=== PATIENT | female | born 1980 ===

== ENCOUNTER 2018-11-05 19:01 | Observation (INO) | payer OTHER ==
--- NOTE | 2018-11-05 20:20 | ED PDOC ---
Arrival/HPI - General Historian: Patient - History of Present Illness Narrative History of Present Illness (Text): 11/05/18 19:52 38-year-old female with a history of cholecystectomy presents today with right- sided back pain radiating to the upper abdomen that started this morning. No medications have been taken for pain at home. patient denies nausea vomiting diarrhea or constipation. No chest pain or shortness of breath. Patient denies cough or URI symptoms. Patient states she had an achy pain that started in the upper back this morning and throughout the days gradually worsened and the pain is now wrapping around the right side back to the upper abdomen. Patient denies dysuria urinary frequency or urgency. Denies fevers or chills. No other complaints <Isis Burkett - Last Filed: 11/06/18 00:50> <Daniel Le - Last Filed: 11/06/18 01:20> - General Chief Complaint: Abdominal Pain Time Seen by Provider: 11/05/18 19:09 Past Medical History - Provider Review Nursing Documentation Reviewed: Yes - Travel History Have you recently traveled outside [place] w/in the past 3 mons?: No - Tetanus Immunization Tetanus Immunization: Unknown - Reproductive Currently : No - Psychiatric Hx Substance Use: No - Surgical History Hx Cholecystectomy: Yes <Isis Burkett - Last Filed: 11/06/18 00:50> Family/Social History - Physician Review Nursing Documentation Reviewed: Yes Family/Social History: Unknown Family HX Smoking Status: Former Smoker Hx Alcohol Use: Yes Frequency of alcohol use: Socially Hx Substance Use: No <Isis Burkett - Last Filed: 11/06/18 00:50> Allergies/Home Meds <Isis Burkett - Last Filed: 11/06/18 00:50> <Daniel Le - Last Filed: 11/06/18 01:20> Allergies/Adverse Reactions: Allergies No Known Allergies Allergy (Verified 11/05/18 19:19) Home Medications: Home Meds Medication Instructions Recorded Confirmed No Known Home Med 11/05/18 11/05/18 Review of Systems - Review of Systems Constitutional: absent: Fatigue, Fevers Respiratory: absent: SOB, Cough Cardiovascular: absent: Chest Pain, Palpitations Gastrointestinal: Abdominal Pain. absent: Constipation, Diarrhea, Nausea, Vomiting Genitourinary Female: absent: Dysuria, Frequency, Hematuria Musculoskeletal: Back Pain. absent: Arthralgias, Neck Pain Skin: absent: Rash, Pruritis Neurological: absent: Headache, Dizziness Psychiatric: absent: Anxiety, Depression <Isis Burkett - Last Filed: 11/06/18 00:50> Physical Exam Vital Signs Reviewed: Yes Vital Signs Temp Pulse Resp BP Pulse Ox 11/05/18 19:12 97.9 F 78 18 112/72 98 Temperature: Afebrile Blood Pressure: Normal Pulse: Regular Respiratory Rate: Normal Appearance: Positive for: Well-Appearing, Non-Toxic, Comfortable Pain Distress: None Mental Status: Positive for: Alert and Oriented X 3 - Systems Exam Head: Present: Atraumatic Mouth: Present: Moist Mucous Membranes Neck: Present: Normal Range of Motion Respiratory/Chest: Present: Clear to Auscultation, Good Air Exchange. No: Respiratory Distress, Accessory Muscle Use Cardiovascular: Present: Regular Rate and Rhythm, Normal S1, S2. No: Murmurs Abdomen: Present: Tenderness (+ ruq tenderness,). No: Distention, Peritoneal Signs, Rebound, Guarding Back: Present: Normal Inspection, Other (no rash). No: Midline Tenderness, Paraspinal Tenderness Upper Extremity: Present: Normal ROM Lower Extremity: Present: Normal ROM Neurological: Present: GCS=15, Speech Normal Skin: Present: Warm, Dry, Normal Color. No: Rashes Psychiatric: Present: Alert, Oriented x 3 <Isis Burkett - Last Filed: 11/06/18 00:50> Vital Signs Temp Pulse Resp BP Pulse Ox 11/05/18 19:12 97.9 F 78 18 112/72 98 <Daniel Le - Last Filed: 11/06/18 01:20> Medical Decision Making ED Course and Treatment: 11/05/18 20:53 Patient is nontoxic well appearing with stable vital signs presenting with [severe] abdominal pain CBC wnl CMP wnl Lipase wnl Urinalysis wnl cxr; wnl CAT scan: FINDINGS: LUNG BASES: The lung bases appear clear. No pleural effusions are seen. LIVER: Unremarkable. GALLBLADDER AND BILE DUCTS: Status post cholecystectomy. No radioopaque gallstones are seen. No biliary ductal dilatation is evident. PANCREAS: Unremarkable. SPLEEN: There is mild splenomegaly. The spleen measured approximately 14.0 cm from superior to inferior pole. ADRENAL GLANDS: Unremarkable. KIDNEYS, URETERS, AND BLADDER: Incidental note is made of a 7.6 mm cyst and a 1.3 cm cyst in the lateral mid and inferolateral lower left renal pole respectively. Otherwise, the kidneys appear within normal limits. There is no hydronephrosis or hydroureter. No uri nary calculi are seen. The urinary bladder is normal in size and configuration. STOMACH AND BOWEL: Some mucosal wall thickening is seen within the lower esophagus at the esophagogastric junction suspicious for some GERD. Unremarkable appearance of the stomach. No evidence of bowel obstruction. Some mucosal wall thickening is noted throughout the small intestine suggesting enteritis. Additionally, there is some mucosal wall thickening throughout the course of the lcolon; most pronounced in the descending and sigmoid regions, suspicious for diffuse colitis. Infectious or inflammatory etiologies are thought likely. APPENDIX: No evidence of acute appendicitis on CT examination. PERITONEUM: No free fluid. No free air. LYMPH NODES: No lymphadenopathy is evident. REPRODUCTIVE: There is a possible Essure insert at the origin of the left fallopian tube. Additionally, there is apparent surgical clip or Essure insert migrated into abnormal position residing within the posterior cul-de-sac. A 2.0 x 2.4 x 2.1 cm left ovarian cyst is noted. Consideration could be given to correlation with TV pelvic ultrasound for further characterization. VASCULATURE: No evidence of abdominal aortic aneurysm. BONES: No aggressive appearing osseous lesion. No acute osseous pathology evident. IMPRESSION: 1. Diffuse enterocolitis as described above. Findings most pronounced in the descending and sigmoid colonic regions. 2. Evidence of GERD. 3. Status post cholecystectomy. 4. Mild splenomegaly. Measurement is given above. 5. Essure insert in the origin of the left fallopian tube. Possible Essure insert migrated into the posterior cul-de-sac. 6. 2.0 x 2.4 x 2.1 cm left ovarian cyst. Electronically signed on Nov 05, 2018 9:49:11 PM EST by: Eugene Salter M.D., CIPRIANO Certified By ABR & CBC[facility] Fellowship Trained MRI and CT Specialist US: Findings: The uterus is normal in size measuring 8.9x4.4x5.4 cm. Anteverted uterus. Endometrium is normal in thickness measuring 5.4 mm. The cervix is unremarkable measuring 3.5 cm in its length. No free fluid is identified in the pelvic cul-de-sac. Unremarkable right ovary measuring 2.4x1.6x2.6 cm. The left ovary measures 3x2x3 cm with a 2.3 cm cyst. Unable to visualize the intrauterine device. Impression: Inability to visualize the intrauterine device. Otherwise, unremarkable exam. Electronically signed on Nov 06, 2018 12:19:24 AM EST by: Ajay Hayes M.D., Certified by ABR, MSK, Neuroradiology Patient reassessment: pt feeling better after toradol. Discussed all results with patient in depth. ct shows enterocolitis; pt is without any n/v/d/c. no fever/chills. no wbcs. will not start abx. Pt states she never had a Essure insert placed. CT ? of essure insert with malposition vs surgical clip. my concern is if this is a essure insert that is malpositioned it may need to be removed due to risk of intraabdominal adhesions. Although on US there is no visualization of the left sided Essure insert or any malpositioned insert. dr. le discussed the case with dr. Neves; accepts observational status for further evaluations. impression; abdominal pain, abnormal ct, possible FB pelvis, enterocolitis admit observational status to med/surg for further evaluation - RAD Interpretation Radiology Orders: 11/05/18 19:31 CHEST PORTABLE [RAD] Stat <Isis Burkett T - Last Filed: 11/06/18 00:50> - Lab Interpretations Lab Results: Total Bilirubin 0.3 mg/dL (0.2-1.3) 11/05/18 20:00 AST 27 U/L (14-36) 11/05/18 20:00 ALT 31 U/L (7-56) 11/05/18 20:00 Alkaline Phosphatase 79 U/L (38-126) 11/05/18 20:00 Total Protein 8.0 g/dL (5.8-8.3) 11/05/18 20:00 Albumin 4.1 g/dL (3.0-4.8) 11/05/18 20:00 Globulin 3.9 gm/dL 11/05/18 20:00 Albumin/Globulin Ratio 1.1 (1.1-1.8) 11/05/18 20:00 Lipase 91 U/L (23-300) 11/05/18 20:00 Urine Color Yellow (YELLOW) 11/05/18 20:00 Urine Appearance Clear (CLEAR) 11/05/18 20:00 Urine pH 6.0 (4.7-8.0) 11/05/18 20:00 Ur Specific [place] 1.020 (1.005-1.035) 11/05/18 20:00 Urine Protein Negative mg/dL (<30 mg/dL) 11/05/18 20:00 Urine Glucose (UA) Negative mg/dL (NEGATIVE) 11/05/18 20:00 Urine Ketones Negative mg/dL (NEGATIVE) 11/05/18 20:00 Urine Blood Negative (NEGATIVE) 11/05/18 20:00 Urine Nitrate Negative (NEGATIVE) 11/05/18 20:00 Urine Bilirubin Negative (NEGATIVE) 11/05/18 20:00 Urine Urobilinogen 0.2 E.U./dL (<1 E.U./dL) 11/05/18 20:00 Ur Leukocyte Esterase Negative Mya/uL (NEGATIVE) 11/05/18 20:00 - RAD Interpretation Radiology Orders: 11/05/18 19:31 CHEST PORTABLE [RAD] Stat 11/05/18 20:38 ABD & PELVIS IV CONTRAST ONLY [CT] Stat - Medication Orders Current Medication Orders: Discontinued Medications Sodium Chloride (Sodium Chloride 0.9%) 1,000 mls @ 999 mls/hr IV .Q1H1M STA Stop: 11/05/18 21:38 Last Admin: 11/05/18 21:15 Dose: 999 mls/hr eMAR Start Stop Document 11/05/18 21:15 OCS (Rec: 11/05/18 21:15 OCS [facility]-ER-21) Intravenous Solution Start Date 11/05/18 Start Time 21:15 End Date 11/05/18 End time 22:16 Total Infusion Time 61 Ketorolac Tromethamine (Toradol) 30 mg IVP STAT STA Stop: 11/05/18 20:39 Last Admin: 11/05/18 21:15 Dose: Not Given Non-Admin Reason: Patient Refused <Daniel Le - Last Filed: 11/06/18 01:20> - PA / DENTAL TREATMENT COORDINATOR / Resident Statement DIONTE has reviewed & agrees with the documentation as recorded. DIONTE has examined the patient and agrees with the treatment plan. <Daniel Le - Last Filed: 11/06/18 01:20> Disposition/Present on Arrival - Present on Arrival Any Indicators Present on Arrival: No History of DVT/PE: No History of Uncontrolled Diabetes: No Urinary Catheter: No History of Decub. Ulcer: No History Surgical Site Infection Following: None - Disposition Have Diagnosis and Disposition been Completed?: Yes Disposition Time: 20:56 Patient Plan: Observation <Isis Burkett - Last Filed: 11/06/18 00:50> <Daniel Le - Last Filed: 11/06/18 01:20> - Disposition Diagnosis: Abdominal pain, Abnormal CT scan, pelvis, Enterocolitis Disposition: HOSPITALIZED Patient Problems: Current Active Problems Problem Status Onset Abdominal pain Acute Abnormal CT scan, pelvis Acute Enterocolitis Acute Condition: FAIR
[2018-11-05 20:21] LABS: BASO # 0.02 K/mm3 (0.0-2.0); BASO % 0.2 % (0.0-3.0); EOS # 0.1 (0.0-0.7); EOS % 1.4 % (1.5-5.0); HEMOGLOBIN 12.8 g/dL (12.0-16.0); LYMPH # 2.7 (1.2-3.4); LYMPH % 29.1 % (22.0-35.0); MEAN CELL VOLUME 83.1 fl (80.0-105.0); MEAN CORPUSCULAR HEMOGLOBIN 28.9 pg (25.0-35.0); MEAN CORPUSCULAR HGB CONC 34.8 g/dl (31.0-37.0); MEAN PLATELET VOLUME 9.5 fl (7.0-11.0); MONO # 0.7 (0.1-0.6); MONO % 7.6 % (1.0-6.0); RBC 4.43 10^6/uL (3.5-6.1); RED CELL DISTRIBUTION WIDTH 13.3 % (11.5-14.5); WHITE BLOOD COUNT 9.4 10^3/uL (4.5-11.0)
[2018-11-05 20:22] LABS: URINE BILIRUBIN NEGATIVE (NEGATIVE); URINE BLOOD NEGATIVE (NEGATIVE); URINE GLUCOSE (UA) NEGATIVE (NEGATIVE); URINE LEUKOCYTE ESTERASE NEGATIVE Leu/uL (NEGATIVE); URINE PROTEIN NEGATIVE mg/dL (<30 mg/dL); URINE UROBILINOGEN 0.2 E.U./dL (<1 E.U./dL)
[2018-11-05 20:23] LABS: URINE APPEARANCE CLEAR (CLEAR); URINE COLOR YELLOW (YELLOW)
[2018-11-05 20:27] LABS: ALB/GLOB RATIO 1.1 (1.1-1.8); ALBUMIN 4.1 g/dL (3.0-4.8); ALT/SGPT 31 U/L (7-56); AST/SGOT 27 U/L (14-36); BLOOD UREA NITROGEN 11 mg/dL (7-21); CALCIUM 9.3 mg/dL (8.4-10.5); GFR NON-AFRICAN AMERICAN > 60; LIPASE 91 U/L (23-300)
[2018-11-05] MEDS ORDERED: Sodium Chloride 0.9% 1,000 ML IV STA (20:38)
[2018-11-05] MEDS ORDERED: Iohexol 350 MG/100 ML VIAL ONE (20:51)
--- NOTE | 2018-11-06 01:38 | CP.PCM.HP ---
History of Present Illness - History of Present Illness History of Present Illness: Medicine History and Physical for Hospitalist Service, Dr. Jonathon Dupont, DO PGY-1 This is a 38 y o female with no remarkable PMhx who presents to the ED today c/o R-sided back pain radiating in front to the RUQ that started in the morning. States that when she was lifting her R shoulder to place her hair into a ponytail, she felt R sided shoulder pain that resolved about an hr later. Then states that the R-sided back pain presented with assoc. abd pain and that it was constant. Denies having pain like this in the past. States she has been able to tolerate PO diet throughout the day. Did not take any OTC pain meds at home for symptoms. Decided to come straight to the ED because her abd pain was not imp roving. Described the pain at the time being achy and uncomfortable. Denies having gas pain, constipation, or episodes of diarrhea. Denies nausea or vomiting. Denies chest pain, sob, urinary complaints, low back pain or other symptoms. States her symptoms are largely improved currently 2/2 treatment with Toradol in the ED. PMhx: none PSurgHx: Cholecystectomy in 1998 without complications as per pt POBhx: s/p 3 full-term NSVDs without complications PGynHx: denies hx ovarian cysts or fibroids; LMP Oct 2018, states periods are regular, no hx abnormal vaginal bleeding Allergies: NKDA Meds: none Fam hx: Dad has throat cancer currently in remission, Mom has hx of multiple blood clots/PEs Soc hx: smoked 1 ppd x 20 y (quit 1 month ago); social EtOH use; denies illicit drug use PMD: Dr. Yani Oh Present on Admission - Present on Admission Any Indicators Present on Admission: No History of DVT/PE: No History of Uncontrolled Diabetes: No Urinary Catheter: No Decubitus Ulcer Present: No Review of Systems - Constitutional Constitutional: absent: Anorexia, Chills ( ), Fever - Cardiovascular Cardiovascular: absent: Chest Pain, Dyspnea on Exertion - Respiratory Respiratory: absent: Cough, Dyspnea, Wheezing - Gastrointestinal Gastrointestinal: Abdominal Pain. absent: Bloating, Change in Stool Character, Constipation, Diarrhea, Nausea, Vomiting Past Patient History - Tetanus Immunizations Tetanus Immunization: Unknown - Past Social History Smoking Status: Former Smoker - PSYCHIATRIC Hx Substance Use: No - SURGICAL HISTORY Hx Cholecystectomy: Yes Meds Allergies/Adverse Reactions: Allergies Allergy/AdvReac Type Severity Reaction Status Date / Time No Known Allergies Allergy Verified 11/05/18 19:19 Physical Exam - Constitutional Appears: Non-toxic, No Acute Distress - Head Exam Head Exam: ATRAUMATIC, NORMOCEPHALIC - Eye Exam Eye Exam: EOMI, Normal appearance, PERRL - ENT Exam ENT Exam: Mucous Membranes Moist - Neck Exam Neck exam: Positive for: Full Rom, Normal Inspection. Negative for: Lymphadenopathy, Tenderness - Respiratory Exam Respiratory Exam: Clear to Auscultation Bilateral, NORMAL BREATHING PATTERN. absent: Rales, Rhonchi, Wheezes - Cardiovascular Exam Cardiovascular Exam: REGULAR RHYTHM, +S1, +S2. absent: Gallop, Rubs, Systolic Murmur - GI/Abdominal Exam GI & Abdominal Exam: Normal Bowel Sounds, Soft. absent: Distended, Guarding, Organomegaly, Rigid, Tenderness Additional comments: Neg Sher's sign, neg Rovsing's sign - Extremities Exam Extremities exam: Positive for: full ROM, normal capillary refill, normal inspection, pedal pulses present. Negative for: calf tenderness, pedal edema - Neurological Exam Neurological exam: Alert, CN II-XII Intact, Normal Gait, Oriented x3, Reflexes Normal - Psychiatric Exam Psychiatric exam: Normal Affect, Normal Mood - Skin Skin Exam: Dry, Intact, Normal Color, Warm Results - Vital Signs Recent Vital Signs: Last Vital Signs Temp 97.9 F 11/06/18 00:04 Pulse 84 11/06/18 00:04 Resp 19 11/06/18 00:04 BP 122/64 11/06/18 00:04 Pulse Ox 98 11/06/18 00:04 - Labs Result Diagrams: 11/05/18 20:00 11/05/18 20:00 Labs: Laboratory Results - last 24 hr 11/05/18 11/05/18 11/05/18 20:00 20:00 20:00 WBC 9.4 RBC 4.43 Hgb 12.8 Hct 36.8 MCV 83.1 MCH 28.9 MCHC 34.8 RDW 13.3 Plt Count 264 MPV 9.5 Neut % (Auto) 61.7 Lymph % (Auto) 29.1 [place] % (Auto) 7.6 H Eos % (Auto) 1.4 L Baso % (Auto) 0.2 Lymph # (Auto) 2.7 [place] # (Auto) 0.7 H Eos # (Auto) 0.1 Baso # (Auto) 0.02 Absolute Neuts (auto) 5.78 Sodium 137 Potassium 4.4 Chloride 103 Carbon Dioxide 29 Anion Gap 10 BUN 11 Creatinine 0.5 L Est GFR ( Amer) > 60 Est GFR (Non-Af Amer) > 60 Random Glucose 100 Calcium 9.3 Total Bilirubin 0.3 AST 27 ALT 31 Alkaline Phosphatase 79 Total Protein 8.0 Albumin 4.1 Globulin 3.9 Albumin/Globulin Ratio 1.1 Lipase 91 Urine Color Yellow Urine Appearance Clear Urine pH 6.0 Ur Specific [place] 1.020 Urine Protein Negative Urine Glucose (UA) Negative Urine Ketones Negative Urine Blood Negative Urine Nitrate Negative Urine Bilirubin Negative Urine Urobilinogen 0.2 Ur Leukocyte Esterase Negative Assessment & Plan - Assessment and Plan (Free Text) Assessment: This is a 38 y o female with no remarkable PMhx who presents to the ED today c/o R-sided back pain radiating in front to the RUQ that started in the morning. Found on CT to have possible foreign body migration, diffuse enterocolitis. Plan: RUQ abd pain -Etiology unclear, possibly 2/2 MSK vs. migration of surgical clip from prior cholecystectomy -Admit to med/surg -Pain improved s/p Toradol in ED, will cont to monitor symptoms -Tylenol q6h prn for pain -Regular diet -CXR on admission: no active disease -CT abd/pelvis: diffuse enterocolitis most prominent in descending + sigmoid colon regions. GERD. S/p cholecystectomy, Mild splenomegaly. Essure insert in origin of L fallopian tube. Possible Essure insert migrated into posterior cul-de-sac. 2.0 x 2.4 x 2.1 cm L ovarian cyst. -Pt denies ever having Essure procedure done in past. [facility]. Awaiting callback. -Transvag U/s: inability to visualize intrauterine device. Otherwise unremarkable exam. -No leukocytosis on admission -U/a negative -Afebrile, vitals stable GI ppx: Protonix DVT ppx: SCDs Pt seen, examined with, and plan discussed with Dr. Jonathon Neves, attending physician. Walker Dupont DO PGY-1, [employer]elling Machine Operator Pager #[phone]
[2018-11-06 03:25] VITALS: BMI 35.9
[2018-11-06 07:25] LABS: BASO # 0.01 K/mm3 (0.0-2.0); BASO % 0.1 % (0.0-3.0); EOS # 0.2 (0.0-0.7); EOS % 2.9 % (1.5-5.0); HEMOGLOBIN 12.1 g/dL (12.0-16.0); LYMPH # 2.1 (1.2-3.4); LYMPH % 29.6 % (22.0-35.0); MEAN CELL VOLUME 82.7 fl (80.0-105.0); MEAN CORPUSCULAR HEMOGLOBIN 28.3 pg (25.0-35.0); MEAN CORPUSCULAR HGB CONC 34.2 g/dl (31.0-37.0); MEAN PLATELET VOLUME 9.3 fl (7.0-11.0); MONO # 0.8 (0.1-0.6); RBC 4.28 10^6/uL (3.5-6.1); RED CELL DISTRIBUTION WIDTH 13.5 % (11.5-14.5)
--- NOTE | 2018-11-06 08:52 | CT ---
Date of service: 11/05/2018 PROCEDURE: CT Abdomen and Pelvis with contrast HISTORY: RIGHT SIDED BACK PAIN RADIATING TO RUQ COMPARISON: None. TECHNIQUE: Contrast dose: Radiation dose: Total exam DLP = 983.16 mGy-cm. This CT exam was performed using one or more of the following dose reduction techniques: Automated exposure control, adjustment of the mA and/or kV according to patient size, and/or use of iterative reconstruction technique. FINDINGS: LOWER THORAX: Unremarkable. LIVER: Unremarkable. No gross lesion or ductal dilatation. GALLBLADDER AND BILE DUCTS: Cholecystectomy. PANCREAS: Unremarkable. No gross lesion or ductal dilatation. SPLEEN: Unremarkable. ADRENALS: Unremarkable. No mass. KIDNEYS AND URETERS: 12 millimeter left lower pole renal cyst. No hydronephrosis. No solid mass. VASCULATURE: Unremarkable. No aortic aneurysm. No aortic atherosclerotic calcification or mural plaque present. BOWEL: Unremarkable. No obstruction. No gross mural thickening. APPENDIX: Normal appendix. PERITONEUM: Unremarkable. No free fluid. No free air. LYMPH NODES: Unremarkable. No enlarged lymph nodes. BLADDER: Unremarkable. REPRODUCTIVE: 2 centimeter left ovarian cyst. BONES: No acute fracture. OTHER FINDINGS: None. IMPRESSION: No acute pathology.
--- NOTE | 2018-11-06 08:57 | RAD ---
Date of service: 11/05/2018 HISTORY: Right sided upper abdominal pain COMPARISON: No prior. FINDINGS: LUNGS: Poor inspiration with low lung volumes, crowded bronchovascular markings and mild bibasilar atelectasis. PLEURA: No significant pleural effusion identified, no pneumothorax apparent. CARDIOVASCULAR: No aortic atherosclerotic calcification present. Normal cardiac size. No pulmonary vascular congestion. OSSEOUS STRUCTURES: No significant abnormalities. VISUALIZED UPPER ABDOMEN: Normal. OTHER FINDINGS: None. IMPRESSION: Poor inspiration with low lung volumes, crowded bronchovascular markings and mild bibasilar atelectasis.
[2018-11-06 09:05] LABS: ALB/GLOB RATIO 0.9 (1.1-1.8); ALBUMIN 3.4 g/dL (3.0-4.8); ALT/SGPT 28 U/L (7-56); AST/SGOT 25 U/L (14-36); BLOOD UREA NITROGEN 12 mg/dL (7-21); CALCIUM 8.6 mg/dL (8.4-10.5); GFR NON-AFRICAN AMERICAN > 60
[2018-11-06 09:22] VITALS: BP 111/54; PULSE 70; RESP 18; TEMP 98.6; O2SAT 97
--- NOTE | 2018-11-06 10:03 | US ---
Date of service: 11/05/2018 HISTORY: essure insert on ct? no hx of any essure procedure COMPARISON: None available. TECHNIQUE: Transabdominal/transvaginal sonographic evaluation of the pelvis performed. FINDINGS: UTERUS: Measures 0.9 x 4.9 x 5.4 cm. Normal in size and appearance. No fibroid or other mass lesion seen. 3.0 x 2.0 x 3.0 Unable to visualize Essure; please refer to prior CT scan the abdomen and pelvis. ENDOMETRIUM: Measures 5.4 mm in diameter. Unremarkable. CERVIX: No cervical abnormality. Cervix measures approximately 3.5 cm RIGHT OVARY: Measures 2.4 x 1.6 x 2.6 cm. No solid mass. Normal flow. LEFT OVARY: Measures cm. No solid mass. Normal flow. FREE FLUID: No significant free fluid noted. OTHER FINDINGS: None. IMPRESSION: Unable to visualize Essure; please refer to prior CT scan abdomen pelvis
--- NOTE | 2018-11-06 11:30 | CARD ---
APPROVED REPORT Date of service: 11/05/2018 EKG Measurement Heart [id number] <Conclusion> Sinus rhythm with occasional premature ventricular complexes Possible Left atrial enlargement
--- NOTE | 2018-11-06 15:00 | CP.PCM.DIS ---
Provider - Provider Date of Admission: 11/06/18 00:49 Attending physician: Amara Valentine DO Primary care physician: Yani Oh MD Time Spent in preparation of Discharge (in minutes): 45 Diagnosis - Discharge Diagnosis (1) Abdominal pain Status: Resolved Hospital Course - Lab Results Lab Results: Most Recent Lab Values WBC 7.0 10^3/uL (4.5-11.0) D 11/06/18 07:10 RBC 4.28 10^6/uL (3.5-6.1) 11/06/18 07:10 Hgb 12.1 g/dL (12.0-16.0) 11/06/18 07:10 Hct 35.4 % (36.0-48.0) L 11/06/18 07:10 MCV 82.7 fl (80.0-105.0) 11/06/18 07:10 MCH 28.3 pg (25.0-35.0) 11/06/18 07:10 MCHC 34.2 g/dl (31.0-37.0) 11/06/18 07:10 RDW 13.5 % (11.5-14.5) 11/06/18 07:10 Plt Count 225 10^3/uL (120.0-450.0) 11/06/18 07:10 MPV 9.3 fl (7.0-11.0) 11/06/18 07:10 Neut % (Auto) 56.4 % (50.0-68.0) 11/06/18 07:10 Lymph % (Auto) 29.6 % (22.0-35.0) 11/06/18 07:10 [place] % (Auto) 11.0 % (1.0-6.0) H 11/06/18 07:10 Eos % (Auto) 2.9 % (1.5-5.0) 11/06/18 07:10 Baso % (Auto) 0.1 % (0.0-3.0) 11/06/18 07:10 Lymph # (Auto) 2.1 (1.2-3.4) 11/06/18 07:10 [place] # (Auto) 0.8 (0.1-0.6) H 11/06/18 07:10 Eos # (Auto) 0.2 (0.0-0.7) 11/06/18 07:10 Baso # (Auto) 0.01 K/mm3 (0.0-2.0) 11/06/18 07:10 Absolute Neuts (auto) 3.94 (1.4-6.5) 11/06/18 07:10 Sodium 137 mmol/L (132-148) 11/06/18 07:10 Potassium 3.7 mmol/L (3.6-5.0) 11/06/18 07:10 Chloride 108 mmol/L (98-107) H 11/06/18 07:10 Carbon Dioxide 25 mmol/L (21-33) 11/06/18 07:10 Anion Gap 8 (10-20) L 11/06/18 07:10 BUN 12 mg/dL (7-21) 11/06/18 07:10 Creatinine 0.4 mg/dl (0.7-1.2) L 11/06/18 07:10 Est GFR ( Amer) > 60 11/06/18 07:10 Est GFR (Non-Af Amer) > 60 11/06/18 07:10 Random Glucose 103 mg/dL (70-110) 11/06/18 07:10 Calcium 8.6 mg/dL (8.4-10.5) 11/06/18 07:10 Total Bilirubin 0.8 mg/dL (0.2-1.3) 11/06/18 07:10 AST 25 U/L (14-36) 11/06/18 07:10 ALT 28 U/L (7-56) 11/06/18 07:10 Alkaline Phosphatase 72 U/L (38-126) 11/06/18 07:10 Total Protein 7.0 g/dL (5.8-8.3) 11/06/18 07:10 Albumin 3.4 g/dL (3.0-4.8) 11/06/18 07:10 Globulin 3.6 gm/dL 11/06/18 07:10 Albumin/Globulin Ratio 0.9 (1.1-1.8) L 11/06/18 07:10 Lipase 91 U/L (23-300) 11/05/18 20:00 Urine Color Yellow (YELLOW) 11/05/18 20:00 Urine Appearance Clear (CLEAR) 11/05/18 20:00 Urine pH 6.0 (4.7-8.0) 11/05/18 20:00 Ur Specific [place] 1.020 (1.005-1.035) 11/05/18 20:00 Urine Protein Negative mg/dL (<30 mg/dL) 11/05/18 20:00 Urine Glucose (UA) Negative mg/dL (NEGATIVE) 11/05/18 20:00 Urine Ketones Negative mg/dL (NEGATIVE) 11/05/18 20:00 Urine Blood Negative (NEGATIVE) 11/05/18 20:00 Urine Nitrate Negative (NEGATIVE) 11/05/18 20:00 Urine Bilirubin Negative (NEGATIVE) 11/05/18 20:00 Urine Urobilinogen 0.2 E.U./dL (<1 E.U./dL) 11/05/18 20:00 Ur Leukocyte Esterase Negative Mya/uL (NEGATIVE) 11/05/18 20:00 - Hospital Course Hospital Course: Upon admission: 38 y o female with no remarkable PMhx who presents to the ED today c/o R-sided back pain radiating in front to the RUQ that started in the morning. States that when she was lifting her R shoulder to place her hair into a ponytail, she felt R sided shoulder pain that resolved about an hr later. Then states that the R- sided back pain presented with assoc. abd pain and that it was constant. Denies having pain like this in the past. States she has been able to tolerate PO diet throughout the day. Did not take any OTC pain meds at home for symptoms. Decided to come straight to the ED because her abd pain was not improving. Described the pain at the time being achy and uncomfortable Upon discharge: Abd/Pelvis CT revealed no acute pathology. TVUS revealed unable to visualize [place]. Pt had received 1L NS bolus, toradol, protonix and tylenol. Pt reported improvement in symptoms a few hours after admission. Pt to be discharged with followup with PMD. Pt instructed on outpatient followup and to return to ED with return or new symptoms Discharge Exam - Head Exam Head Exam: ATRAUMATIC, NORMOCEPHALIC - Eye Exam Eye Exam: EOMI, Normal appearance - ENT Exam ENT Exam: Mucous Membranes Moist, Normal Exam - Neck Exam Neck exam: Normal Inspection - Respiratory Exam Respiratory Exam: NORMAL BREATHING PATTERN, UNREMARKABLE - Cardiovascular Exam Cardiovascular Exam: REGULAR RHYTHM, +S1, +S2 - GI/Abdominal Exam GI & Abdominal Exam: Normal Bowel Sounds, Unremarkable - Extremities Exam Extremities exam: normal inspection - Back Exam Back exam: NORMAL INSPECTION - Neurological Exam Neurological exam: Alert, Oriented x3 - Psychiatric Exam Psychiatric exam: Normal Affect, Normal Mood - Skin Skin Exam: Dry, Intact, Warm Discharge Plan - Follow Up Plan Condition: FAIR Disposition: HOME/ ROUTINE Additional Instructions: Please follow up with your primary care doctor, Dr. Yani Oh within 3-5 days of discharge Please resume the medications that you were taking previously Please discuss all your medications with your primary care doctor If your symptoms return, or you experience new symptoms, please return to the nearest emergency room Referrals: Yani Oh MD [Primary Care Provider] -
== END 2018-11-06 17:10 | disposition home or self-care (01) ==
LOC: ED 19:01 → ERH 11-06 00:49 → 5RNO 11-06 01:49
PROVIDERS: ADMIT Hospitalist; ATTEND Hospitalist
DX: K52.9 Noninfective gastroenteritis and colitis, unspecified (principal); K21.9 Gastro-esophageal reflux disease without esophagitis; N83.202 Unspecified ovarian cyst, left side; Z80.8 Family history of malignant neoplasm of other organs or systems; Z87.891 Personal history of nicotine dependence
CPT/HCPCS: 36415; 71045; 74177; 76830; 80053; 81003; 81025; 83690; 85025; 93005; 96361; 96374; 99284; G0378; J1885; J7030; Q9967